=== PATIENT | female | born 1980 ===

== ENCOUNTER → 2024-01-17 08:33 | Outpatient (REF) | payer OTHER, SELFPAY | LOC: WDC 08:33 | PROVIDERS: ATTENDING PHYSICIAN Surgery | DX: C50.412 Malignant neoplasm of upper-outer quadrant of left female breast (principal) | CPT/HCPCS: 38792; 76942; A9541 ==

== ENCOUNTER 2024-01-18 12:11 | Inpatient (IN) | payer OTHER, SELFPAY ==
[2024-01-07 11:11] LABS: ALT (SGPT) 16 U/L (0-35); AST (SGOT) 23 U/L (14-36); Albumin 4.3 g/dl (3.5-5.0); Alkaline Phosphatase 58 U/L (38-126); Blood Urea Nitrogen 20 mg/dl (7-17); Calcium 8.8 mg/dl (8.4-10.2); Carbon Dioxide 25 mmol/L (22-30); Chloride 103 mmol/L (98-107); Glucose 91 mg/dl (70-99); Potassium 4.6 mmol/L (3.5-5.1); Sodium 137 mmol/L (135-145); Total Bilirubin 0.5 mg/dl (0.2-1.3); Total Protein 6.5 g/dl (6.3-8.2); eGFR > 60.00
[2024-01-07 11:26] LABS: % Basophils 1.3 % (0-2); % Lymphocytes 31.7 % (20.5-51.1); Absolute Basophils 0.1 10^3/uL (0-0.2); Absolute Eosinophils 0.1 10^3/uL (0-0.7); Absolute Lymphocytes 1.5 10^3/uL (1.2-3.4); Absolute Monocytes 0.4 10^3/uL (0.1-0.6); Absolute Neutrophils 2.7 10^3/uL (1.4-6.5); Hemoglobin 10.1 g/dL (12.0-16.0); Mean Corp Hgb Conc. 31.6 g/dL (33.0-37.0); Mean Corpuscular Volume 82.3 fL (81.0-99.0); Mean Platelet Volume 10.4 fL (7.4-10.4); Nucleated Red Blood Cells % 0 %; Platelet Count 264 10^3/uL (130-400); Red Blood Cell Count 3.89 10^6/uL (4.20-5.40); Red Cell Dist. Width 13.9 % (11.5-14.5); White Blood Cell Count 4.8 10^3/uL (4.8-10.8)
[2024-01-07 11:29] LABS: Vitamin D, 25-OH*** 41.8 ng/mL (30-80)
[2024-01-07 13:33] VITALS: BMI 23.4
[2024-01-18] VITALS (12 sets, daily range): BP systolic 5–116; BP diastolic 53–69; BMI 23.4
[2024-01-18] MEDS: NORMOSOL-R 1000 IV (12:46)
[2024-01-18] MEDS: TYLENOL 1000 MG PO ×2 (12:46→22:14)
--- NOTE | 2024-01-18 13:00 | W.SUR.PREOP ---
Pre-Operative Surgical Note
-
I have examined this patient prior to the performance of the scheduled procedure.
The patient's condition is unchanged from the time of the current History and
Physical and the patient is able to undergo the scheduled procedure.
[2024-01-18] MEDS: LOVENOX 40 MG SC (13:12)
--- NOTE | 2024-01-18 17:41 | W.IMMPOSTOP ---
Surgical Immed Post Op Note
-
Primary Surgeon: Zain
Assisting Surgeon: None
Pre-op Diagnosis: Left breast ca
Post-op Diagnosis: Same
Procedure Performed: Bilateral nipple sparing mastectomies, left sentinel lymph node mapping and biopsy
Anesthesia Type: GET
Specimen / Cultures: Bilateral breasts, left retroareolar button, left sentinel node
Estimated Blood Loss: 20c
Complications: None
Operative Findings: Neg button and node on frozen section
[place] Node Bx Breast Cancer
[place] Node Bx Breast Cancer
Operation performed with curative intent: Yes
Tracer(s) to ID [place] Nodes in Non-Neoadjuvant setting: Radioactive Tracer
Tracer(s) to ID Sentinal Nodes in the Neoadjuvant Setting: N/A
All nodes at end of dye-filled Lymphatic Channel removed: N/A
All Significantly Radioactive Nodes were removed: Yes
All Palpably Suspicious Nodes were Removed: Yes
Bx Proven Pos Nodes Marked Prior to Chemo ID'd & Removed: N/A
--- NOTE | 2024-01-18 19:07 | W.IMMPOSTOP ---
Surgical Immed Post Op Note
-
Primary Surgeon: AISHA Durán MD
Assisting Surgeon:
Pre-op Diagnosis: Breast Cancer
Post-op Diagnosis: Same
Procedure Performed: Bilateral immediate straightener and aligner based breast reconstruction
Anesthesia Type: General
Specimen / Cultures: Per Dr. Pittman
Estimated Blood Loss: 10cc
Complications: None
Operative Findings: As expected
--- NOTE | 2024-01-18 19:08 | OR.RPT ---
Operative Report
Operative Report
Date of surgery: 01/18/2024
Surgeon: AISHA Durán MD
Preoperative diagnosis: Breast cancer
Postoperative diagnosis: Same
Procedure:
1. Bilateral immediate breast reconstruction with partial submuscular tissue saloon keeper placement
2. Bilateral spy angiography
3. Bilateral insertion of ADM mesh 6 x 16 ( x 2)
Complications: None
EBL: 30 cc
Anesthesia: General
Specimens: Per Dr. Pittman
Indications for procedure: Patient is a 43-year-old female with recently diagnosed left-sided breast cancer. She underwent prior evaluation and lumpectomy via periareolar approach with the surgeon from an outside hospital. She was then referred to
Dr. Pittman and myself for further care for bilateral nipple sparing mastectomy and immediate reconstruction. Conversation was had about her options including implant-based and autologous reconstruction methods. She decided to undergo a two-stage
saloon keeper to implant reconstruction. Risks to the nipple areolar complex and the mastectomy skin flap was reviewed at length given the prior surgical scars on the left breast as well as right chest wall from skin excision. Risk include infection,
reconstructive failure, mastectomy skin flap necrosis, hematoma, seroma, need for repeat procedure. She understood these risks and desired to proceed
Procedure in detail: Patient was identified preoperatively and the normal anatomical landmarks were delineated as well as the proposed inframammary incision bilaterally. All questions were answered and consents were confirmed. Patient was then
taken back to the operating room placed supine the table. Anesthesia was induced and the patient was prepped and draped using ChloraPrep solution in usual sterile fashion. Timeout for patient patient safety was performed was confirmed that
preoperative antibiotics had been administered and bilateral SCDs were in place. Dr. Clementine Pittman began the procedure performing a left nipple sparing mastectomy via an inframammary approach. Preoperative port will be dictated separately.
My role in the procedure was to prepare the right side inframammary approach prior to Dr. Pittman performing the mastectomy. I then performed the bilateral immediate tissue saloon keeper reconstruction. Given the scar patterns and a small buttonhole in
the left mastectomy skin, the decision was made to go partial submuscular with an inferior AlloDerm sling. This would provide near total support muscular coverage in the area of the nipple areolar complex. Meticulous hemostasis was ensured and
the bilateral pectoralis muscles were then elevated off the chest wall. A release of the origin into the inframammary fold was performed judiciously. The base width was then measured and a 12 cm saloon keeper was decided to be utilized. 6 x 16 sheet
of core TIVA ADM was then opened and rehydrated and antibiotic solution. This was inset into the inframammary fold and along the lateral breast boundary using a series of 2-0 Vicryl sutures. This was also inset along the edge of the muscle after
placing the saloon keeper in the submuscular place. Passenger Car Inspector was then totally deflated. The wound was then irrigated with double antibiotic solution and dilute Betadine solution. Pectoralis and intercostal blocks were performed with dilute half
percent Marcaine. Spy angiography was performed to confirm adequate perfusion of the mastectomy skin flap. The small buttonhole in the left breast was repaired with excision and closure with 5-0 Prolene sutures. The wound was then closed with 3-0
Vicryl followed by 3-0 Monocryl and 4 oh-0 Monocryl sutures. Exact same procedure was performed on the right side, performing a partial submuscular tissue saloon keeper placement after confirming meticulous hemostasis. A partial ADM sling was then
constructed and sutured to the chest wall and pectoralis muscle using 2-0 Vicryl. Wound was irrigated with double antibiotic and dilute Betadine solution and blocks were performed. 2 drains were left in the bilateral wounds and tunneled a long
subcutaneous tunnel. Wound was closed on the right in the same fashion and the bilateral wounds were dressed with bacitracin, dry gauze and Tegaderm. Patient tolerated the procedure well was performed out complication, all counts were correct at
the end the case.
[2024-01-18] MEDS: DILAUDID 0.25 MG IV ×2 (19:28→20:06)
[2024-01-18] MEDS: NEURONTIN 100 MG PO (22:14)
[2024-01-18] MEDS: VALIUM 5 MG PO (22:36)
[2024-01-19] VITALS: BP 101/49
[2024-01-19 00:06] VITALS: BP 101/49
[2024-01-19] MEDS: ULTRAM 100 MG PO ×2 (01:20→09:26)
[2024-01-19] MEDS: ANCEF 5 IV ×2 (01:52→09:24)
[2024-01-19 03:25] VITALS: BP 99/56
[2024-01-19] MEDS: DILAUDID 1 MG IV (04:02)
[2024-01-19] MEDS: TYLENOL 1000 MG PO ×2 (05:44→11:24)
[2024-01-19 06:53] LABS: Hematocrit 28.7 % (37.0-47.0); Hemoglobin 9.4 g/dL (12.0-16.0)
[2024-01-19 07:25] LABS: Blood Urea Nitrogen 14 mg/dl (7-17); Calcium 7.6 mg/dl (8.4-10.2); Carbon Dioxide 22 mmol/L (22-30); Chloride 103 mmol/L (98-107); Estimated Creatinine Clearance 88 ml/min; Glucose 130 mg/dl (70-99); Potassium 4.4 mmol/L (3.5-5.1); Sodium 132 mmol/L (135-145); eGFR > 60.00
[2024-01-19 07:42] VITALS: BP 92/57
--- NOTE | 2024-01-19 07:49 | PTCARENOTE ---
[facility] for recovery consults called in to Swapna Pacheco @ ext. [phone].
--- NOTE | 2024-01-19 08:06 | W.PN.UPDATE ---
Update Note
Progress Note Update
The patient is a 43 Y/O female POD #1 S/P bilateral nipple sparing mastectomies, left sentinel node mapping and biopsy. Overnight she had chest pain which was post-operative in nature as expanders are retropectoral. EKG abnormality is most likely
related to lead placement. She is low risk for any cardiovascular event. she reports that her pain is controlled. All flaps viable with no evidence of necrosis.
Plan D/C after Dr. Durán sees her and pt will follow up with both of us.
--- NOTE | 2024-01-19 08:45 | W.PN.PLAS ---
Today's Communication
-
Home today with VN
Progress Note
Objective Data
Vital Signs
Temp Pulse Resp BP Pulse Ox
98.5 F 65 18 92/57 98
01/19/24 07:42 01/19/24 07:42 01/19/24 07:42 01/19/24 07:42 01/19/24 07:42
Intake and Output
01/18/24 01/19/24 01/20/24
06:59 06:59 06:59
Intake Total 1910 / 1910
Output Total 530 / 530
Balance 1380 / 1380
Intake:
Oral fluids 1660 / 1660
IV fluids (Total) 250 / 250
Normosol 250 / 250
Output:
Drain Output (Total) 530 / 530
Left Chest C 35 / 35
Left Chest D 195 / 195
Right Chest B 240 / 240
Right Chest Ramses-Ariza A 60 / 60
Other:
Number of approximated MODERATE 2
amounts of urine
Lab Results
01/19/24 06:16
01/19/24 06:16
Assessment / Plan
Wound stable. Patient continues to improve. Doing well. Patient anxious to go.
Patient is stable. Will discharge to home once patient is able to ambulate, void, tolerate a PO diet and pain is adequately controlled.
Visiting Nurse care ordered / not ordered.
Wound care discussed with patient.
Follow up within days.
Follow up with family physician for any medical issues.
Patient given any appropriate scripts at office pre op visit.
--- NOTE | 2024-01-19 08:45 | W.DCSUMMARY ---
Discharge Summary
Discharge Data
Date of Admission: 01/18/24
Date of Discharge: 01/19/24
-
Pending Results: No
Hospital Course
Admitted following bilateral mastectomy and immediate breast tissue delivery rep based reconstruction.
Did well overnight. Some pain control issues.
Upon discharge she was tolerating a regular diet, pain well controlled, ambulating an voiding.
Discharged with VN for drain management and short term surgical follow up.
Discharge Plan
-
Patient Disposition: Home (Routine Discharge)
Discharge Diagnosis/Procedures: s/p bilateral NS mastectomy and immediate delivery rep recon
Condition: Good
Diet: No restrictions
Activity: No strenuous activity
Additional Activity: No heavy lifting > 5-10lbs
Driving Restrictions: Not until seen by your Dr
Bathing Restrictions: OK to Shower
Other Services: VN
Wound Care: Remove dressings if they become wet; strip and record drain output twice daily
Referrals:
Wilma Toussaint PA [Family Provider] -
Deejay Durán MD [Active] -
Prescriptions:
New
tramadol 50 mg Tablet
50 mg PO Q6HPRN PRN (Reason: severe pain) 14 Days Qty: 30 0RF
acetaminophen [Tylenol Extra Strength] 500 mg Tablet
1,000 mg PO Q6 30 Days Qty: 240 1RF
gabapentin 100 mg Capsule
100 mg PO TID 60 Days Qty: 180 1RF
diazepam 5 mg Tablet
5 mg PO TIDPRN PRN (Reason: Muscle Spasms) 14 Days Qty: 42 0RF
cefadroxil 500 mg capsule
500 mg PO BID Qty: 42 0RF
Discharge Orders:
Discharge Patient (As Directed); Ordered 01/19/24
Ordered By: Deejay Durán
Discharge Date and Time
Print Language: THAI
[2024-01-19] MEDS: NEURONTIN 100 MG PO (09:24)
--- NOTE | 2024-01-19 09:37 | CM ---
Addendum entered by Cici Roldan RN 01/19/24 10:00:
Cheryl
Original Note:
Reviewed the chart notes and spoke with the patient and spouse at the bedside. The patient resides with her spouse in a two story home with a total of seven steps to enter. Patient reports no DME/VN/SNF in the past. Patient confirmed pharmacy of
choice is the [facility]. Joanie. CM consult received for VN/homecare. Discussed options. VN does not go to [place]. [facility] VN referral sent. CM continues to be available to patient/family and is monitoring medical plan for needs
at discharge.
Plan: Discharge to home on [facility] VN services.
--- NOTE | 2024-01-19 09:43 | PTCARENOTE ---
CLEMENT drain care-recording, stripping and emptying reviewed with patient, spouse and patient's sisters. Patient verbalized and demonstrated understanding.
== END 2024-01-19 11:35 | disposition home health service (06) | DRG 581 ==
LOC: 2 SOUTH 12:11
PROVIDERS: Surgery; ADMITTING PHYSICIAN Surgery Plastic and Reconstructive Surgery; FAMILY PHYSICIAN Nurse Practitioner Adult Health
PROC: 0HHV0NZ Insertion of Tissue Expander into Bilateral Breast, Open Approach (ICD-10-PCS; 2024-01-18)
PROC: 0HTV0ZZ Resection of Bilateral Breast, Open Approach (ICD-10-PCS; 2024-01-18)
PROC: 0HRV0JZ Replacement of Bilateral Breast with Synthetic Substitute, Open Approach (ICD-10-PCS; 2024-01-18)
PROC: 07B60ZX Excision of Left Axillary Lymphatic, Open Approach, Diagnostic (ICD-10-PCS; 2024-01-18)
DX: C50.412 Malignant neoplasm of upper-outer quadrant of left female breast (principal); Z17.0 Estrogen receptor positive status [ER+]; M62.838 Other muscle spasm; Z85.828 Personal history of other malignant neoplasm of skin; Z80.3 Family history of malignant neoplasm of breast
CPT/HCPCS: 88305; 88307; 88332; 36415; 80048; 80053; 82306; 84134; 85014; 85018; 85025; 88331; 88333; 88342; 93005; C1729; C1789; Q4100

== ENCOUNTER 2024-05-02 06:16 | Day surgery (SDC) | payer OTHER, SELFPAY ==
[2024-05-02] VITALS (10 sets, daily range): BP systolic 102–119; BP diastolic 62–72; BMI 23.4
[2024-05-02] MEDS: TYLENOL 1000 MG PO (10:56)
[2024-05-02] MEDS: DEMEROL 12.5 MG IV (14:48)
--- NOTE | 2024-05-02 16:29 | W.IMMPOSTOP ---
Surgical Immed Post Op Note
-
Primary Surgeon: AISHA Durán MD
Assisting Surgeon:
Pre-op Diagnosis: history of breast cancer, history of bilateral mastectomies
Post-op Diagnosis: same
Procedure Performed: bilateral removal of tissue expanders, insertion of silicone gel implants, extensive capsulotomies, fat grafting to the bilateral breast
Anesthesia Type: General
Specimen / Cultures: None
Estimated Blood Loss: 15 cc
Complications: none
Operative Findings: as expected
--- NOTE | 2024-05-02 16:30 | OR.RPT ---
Operative Report
Operative Report
date of surgery: 05/02/2024
Surgeon: AISHA Durán MD
Preoperative diagnosis: History of left breast cancer, surgically acquired absence of bilateral breasts
postoperative diagnosis: Same
Procedure:
1. Bilateral removal of tissue expanders
2. Extensive capsulotomies with modification of the implant capsule, bilateral
3. Bilateral insertion of silicone gel breast implants
4. Fat grafting to the bilateral reconstructed breasts, 120 cc
anesthesia: General
EBL: 15 cc
Complications: None
Indication for procedure: Patient is a 43-year-old female with a history of breast cancer status post bilateral nipple sparing mastectomy. She underwent stage I reconstruction with tissue expanders. She followed an uneventful postoperative course
and allowed minor delayed wound healing to resolve without intervention. She was expanded accordingly and reached her goal size. She desired to proceed with a second stage breast reconstruction with removal of the bilateral expanders and
reconstruction with silicone gel breast implants. Risks of implants were discussed at length including capsular contracture, rupture, BII, ALCL, other capsular pathologies, infection, malposition, wrinkling and rippling. Risks of fat grafting were
discussed including donor site morbidity and skin contour abnormality as well as fat necrosis and oil cyst. Fat grafting was performed to smooth the contour and support the soft tissue overlying the implants. Patient understood these risk desire
to proceed and consented accordingly.
Procedure in detail: Patient was identified preoperatively and the surgical site was confirmed to be the bilateral breast bilateral medial and lateral thighs. All questions were answered and consents were confirmed. Patient was taken back the
operating placed supine on table. Anesthesia was induced and an LMA was placed. Patient was prepped and draped in the usual sterile fashion using ChloraPrep solution. Timeout for patient safety was performed was confirmed that bilateral SCDs were
in place and preoperative antibiotics have been administered. Procedure began with the injection 1% lidocaine with epinephrine into the proposed inframammary fold incisions at the prior scar. 15 blade was used to incise these markings and
dissection continued down to the implant capsule. Electrocautery was used to dissect along the capsule superiorly for a stairstep incisional capsulotomy. The manager of disaster recovery was removed and was confirmed that approximately 350 cc of fluid was in each
manager of disaster recovery. The capsule was inspected and found to be soft and pliable. Superior medial constriction required that capsulotomies be performed and reelevation of the pectoralis muscle to establish an adequate implant pocket. This was performed and
meticulous hemostasis was ensured. The wound was irrigated and a gel sizer was placed into the pocket. The results were evaluated and determined that 505 cc Sientra high-profile silicone gel cohesive implant would achieve her desired goals to be
slightly larger than she was at present. As such the sizer was removed and 2 rounds of antibiotic irrigation were used to irrigate the pocket followed by dilute Betadine. The skin was reprepped and new gloves were donned. The implant was placed
into a Chavez funnel and inserted into the pocket using a no touch technique. 2-0 Vicryl's were used to close the implant space followed by 3-0 and 4-0 Monocryl. Attention was then drawn to the left side where the exact same procedure was
performed. Prior incision was incised and dissection continued along the capsule for stairstep capsulotomy. The manager of disaster recovery was removed and the capsule appeared normal and pliable. Extensive capsulotomies were performed with superior medial fashion
along with reelevation of the pectoralis muscle to allow for more appropriate implant pocket. The sizer was then again placed and meticulous hemostasis was ensured. The sizer was removed and 2 rounds of antibiotic irrigation were used followed by
dilute Betadine irrigation. The skin was reprepped and new gloves were donned and a another 505 Sientra high-profile silicone gel cohesive implant was placed using a Chavez funnel and no touch technique. Wound was closed with 2-0 Vicryl followed
by 3-0 and 4-0 Monocryl. Attention was then drawn to the bilateral donor sites of the medial and lateral thighs. Small focals were made with 15 blade and tumescent solution consisting of lidocaine with epinephrine diluted in 1 L of saline were
injected into the donor sites. An appropriate amount of time was taken and then pretunneling. after an appropriate amount of time, lipo aspiration commenced using a 3 mm cannula. This was done to ensure no residual contour deformity.
Approximately 600 cc of Lipo aspirate was obtained from the 4 sites and this was proximal assessed using the pure graft system. Off suction, redistribution of the fat via equilibration was performed in the donor sites. The Lipo aspirate was washed
with lactated Ringer's and then drained. A total of 150 cc of graftable fat was obtained. 2 small poke holes were made in the areolar border on each breast to allow for injection of the fat graft into the subcutaneous space. A total of 60 cc was
placed into each breast. These poke holes were also closed with 5-0 fast as were the liposuction donor sites. Patient tolerated the procedure well was performed out complication, all counts were correct at the end the case. The wounds were
dressed and she was extubated taken the PACU for further care.
== END 2024-05-02 16:40 | disposition home or self-care (01) ==
LOC: SDS 06:16
PROVIDERS: ATTENDING PHYSICIAN Surgery Plastic and Reconstructive Surgery
DX: N63.21 Unspecified lump in the left breast, upper outer quadrant (principal); Z85.3 Personal history of malignant neoplasm of breast
CPT/HCPCS: 11970; 19370; 15771; C1789

== ENCOUNTER 2025-05-15 06:10 | Day surgery (SDC) | payer OTHER, SELFPAY ==
[2025-05-01 11:42] LABS: Hematocrit 33.0 % (37.0-47.0); Hemoglobin 9.8 g/dL (12.0-16.0); Mean Corp Hgb Conc. 29.7 g/dL (33.0-37.0); Mean Corpuscular Volume 77.8 fL (81.0-99.0); Platelet Count 251 10^3/uL (130-400); Red Cell Dist. Width 15.4 % (11.5-14.5)
[2025-05-01 12:13] LABS: ALT (SGPT) 20 U/L (0-35); AST (SGOT) 27 U/L (14-36); Albumin 4.7 g/dl (3.5-5.0); Alkaline Phosphatase 47 U/L (38-126); Blood Urea Nitrogen 17 mg/dl (7-17); Calcium 8.7 mg/dl (8.4-10.2); Carbon Dioxide 26 mmol/L (22-30); Chloride 104 mmol/L (98-107); Glucose 88 mg/dl (70-99); Potassium 4.8 mmol/L (3.5-5.1); Sodium 134 mmol/L (135-145); Total Protein 7.8 g/dl (6.3-8.2); eGFR > 60.00
[2025-05-01 12:26] LABS: Prealbumin (Transthyretin) 23.3 mg/dl (17.6-36.0)
[2025-05-01 12:38] LABS: Vitamin D, 25-OH*** 31.5 ng/mL (30-80)
[2025-05-01 14:06] VITALS: BMI 24.5
[2025-05-15] VITALS (9 sets, daily range): BP systolic 107–120; BP diastolic 66–75; BMI 24.5
[2025-05-15] MEDS: TYLENOL 1000 MG PO (13:52)
[2025-05-15] MEDS: NORMOSOL-R/PLASMALYTE-A 1000 IV (13:53)
[2025-05-15] MEDS: LOVENOX 40 MG SC (15:16)
--- NOTE | 2025-05-15 17:52 | OR.RPT ---
Operative Report
Operative Report
Date of Operation: 05/15/2025
Pre Op Diagnosis: Left axillary vein bleeding
Post Op Diagnosis: Left axillary vein bleeding
Procedure: Primary repair of left axillary vein bleeding
Surgeon: Azam Simeon III, MD
Anesthesia: General
Complications: None
Estimated Blood Loss: Minimal
History and Indications for Procedure: Called to the operating room by Dr. Pittman for intraoperative consultation. Dr. Pittman was performing a left axillary dissection and encountered bleeding from the left axillary vein.
Procedure in Detail: I was able to evaluate the left axillary vein through the existing incision. Dr. Pittman had placed a clamp on the site of bleeding which had controlled it. I removed the clamp and found what appeared to be an avulsion of a
sidebranch from the main left axillary vein. I primarily repaired this site of bleeding with an interrupted 5-0 Prolene suture placed parallel to the long axis of the vein so as to not narrow the vessel. Hemostasis was achieved with this maneuver.
I then performed a limited sharp dissection to further expose the left axillary vein at this level. No other site of bleeding was identified. The vein was soft to palpation. The vein was widely patent by visual inspection with no area of
narrowing. I then turned the case back over to Dr. Pittman.
Signed:
Azam Simeon III, MD
Vascular Surgery
[facility]
[2025-05-15] MEDS: ROXICODONE 10 MG PO (19:18)
--- NOTE | 2025-05-22 08:20 | W.IMMPOSTOP ---
Surgical Immed Post Op Note
-
Primary Surgeon: Zain
Assisting Surgeon: None
Pre-op Diagnosis: Left axillary recurrence of breast cancer
Post-op Diagnosis: Same
Procedure Performed: Left axillary dissection
Anesthesia Type: LMA
Specimen / Cultures: Left axillary contents
Estimated Blood Loss: 10cc
Complications: None
Operative Findings: axillary vein branch ligated by Dr. Simeon
--- NOTE | 2025-05-22 08:22 | OR.RPT ---
Addendum entered and electronically signed by Clementine Pittman MD 05/22/25 08:30:
Synoptic operative report axillary lymph node dissection
Procedure performed with curative intent: Yes
Dissection limited to level 1 and 2 lymph nodes: yes
Nerves preserved: Long thoracic, thoracodorsal, intercostal brachial
All palpable suspicious nodes removed: Yes
Original Note:
Operative Report
Operative Report
Date of procedure 05/15/2025
Surgeon: Zain
Preoperative diagnosis: Recurrent left axillary breast carcinoma
Postoperative diagnosis: Same
Procedure: Left axillary lymph node dissection
The patient is a 44-year-old female previously treated for left breast carcinoma who underwent bilateral mastectomies and reconstruction and left sentinel lymph node mapping and biopsy. She presented with an axillary recurrence and presents for
axillary lymph node dissection. The patient presented to the same-day surgical services unit where she was prepped. She verified site and procedure. DVT and antibiotic prophylaxis were provided and she was taken to the operating room. In the
supine position LMA general anesthesia was induced. The left axilla was prepped and draped in the usual sterile fashion and all team members performed appropriate timeout procedure.
Tissues were anesthetized with 1% lidocaine plain and a curvilinear incision was made inferior to the hairline in the left axilla. Dissection was carried down through clavipectoral fascia using the cautery. A level 2 axillary dissection was
performed taking care not to dissect on or above the axillary vein. Long thoracic thoracodorsal and blunt intercostal brachial nerves were preserved throughout their course. There was an apparent vessel inferior to the pectoralis major muscle
which was a branch of the axillary vein. I asked vascular surgery to enter the case and Dr. Simeon entered and confirmed that the axillary vein was intact and uninjured. He suture-ligated on the feeding vessel with 5-0 Prolene. All contents were
sent under same cover. Hemostasis was verified. Marcaine 0.5% plain was instilled. There was FDG activity on a PET scan posterior to the pectoralis muscle that was felt to possibly be vascular and this feeding vein was in the correct position.
Careful inspection was made and there were no other masses appreciated. A 15 Greek channel drain was passed through the inferior skin flap and secured to the skin with a 2-0 nylon suture. Skin the wound was closed using simple interrupted 2-0 and
3-0 Polysorb and skin was closed with running subcuticular 4 Monocryl. Surgical glue and sterile compressive dressing were applied. All sponge needle and instrument counts were correct and the patient was transferred to the recovery room in stable
condition
([id number])
== END 2025-05-15 19:45 | disposition home or self-care (01) ==
LOC: SDS 06:10
PROVIDERS: ATTENDING PHYSICIAN Surgery; FAMILY PHYSICIAN Nurse Practitioner Adult Health
DX: C77.3 Secondary and unspecified malignant neoplasm of axilla and upper limb lymph nodes (principal); C50.912 Malignant neoplasm of unspecified site of left female breast
CPT/HCPCS: 38745; 36415; 80053; 82306; 84134; 85027; 88304; 88307; A4648